=== PATIENT | male | born 1990 | race African-American/Black ===

== ENCOUNTER 2018-12-20 10:43 | Day surgery (SDC) | payer OTHER ==
[~2018-12-20] VITALS: Ht 188 cm; Wt 102.1 kg
[2018-12-20] MEDS ORDERED: CEFAZOLIN SODIUM 1 GM/D5W PM 50 ML IV SCH (10:55)
[2018-12-20] MEDS ORDERED: BUPIVACAINE-MPF 0.25% 30 ML VIAL INJ ONE (12:02)
[2018-12-20] MEDS ORDERED: KETOROLAC 30 MG/ML VIAL ONE (12:06)
[2018-12-20] MEDS ORDERED: SEVOFLURANE 250 ML BTL INH ONE (12:06)
[2018-12-20] MEDS ORDERED: ONDANSETRON 4 MG/2 ML VIAL ONE (12:06)
[2018-12-20] MEDS ORDERED: SUCCINYLCHOLINE CHLORIDE 200 MG/10 ML VIAL IVP ONE (12:06)
[2018-12-20] MEDS ORDERED: ROCURONIUM 50 MG/5 ML VIAL IV ONE (12:06)
[2018-12-20] MEDS ORDERED: DEXAMETHASONE 4 MG/ML VIAL ONE (12:06)
[2018-12-20] MEDS ORDERED: MIDAZOLAM 2 MG/2 ML VIAL ONE (12:13)
[2018-12-20] MEDS ORDERED: MEPERIDINE 50 MG/ML SYR ONE (12:14)
[2018-12-20] MEDS ORDERED: fentaNYL 0.05 MG/ML VIAL ONE (12:14)
[2018-12-20] MEDS ORDERED: ONDANSETRON 4 MG/2 ML VIAL IVP PRN (12:35)
[2018-12-20] MEDS ORDERED: MEPERIDINE 25 MG/ML SYR IVP PRN (12:35)
[2018-12-20] MEDS ORDERED: diphenhydrAMINE 50 MG/ML VIAL IVP PRN (12:35)
[2018-12-20] MEDS ORDERED: ONDANSETRON 4 MG/2 ML VIAL IV PRN (17:10)
[2018-12-20] MEDS ORDERED: MORPHINE SULFATE 2 MG/ML SYR IVP PRN (17:10)
[2018-12-20] MEDS ORDERED: MORPHINE SULFATE 4 MG/ML SYR IV PRN (17:10)
[2018-12-20] MEDS ORDERED: ACETAMINOPHEN 325 MG TAB PO PRN (17:10)
[2018-12-20] MEDS: HYDROmorphone 1 MG/ML AMP IVP PRN ×4 (17:15→19:44)
[2018-12-20] MEDS ORDERED: HYDROmorphone PFS 2 MG/ML SYR ONE (17:20)
[2018-12-20 18:30] VITALS: BP 132/84
--- NOTE | 2018-12-20 18:30 | NUR ---
RECEIVED PT FROM OR NURSE, EMILY [facility]IA [employer], PT IS AWAKE AND IS ON THE BEDSIDE, PT HAS AN IV LINE ON THE RT HAND G.20 WITH IVF OF LACTATED RINGER INFUSING. PT HAS 4 SURGICAL INCISIONS ON THE ABDOMINAL AREA, ELDA INTACT WITH BANDAGES IN PLACE, NO DRAINAGE NOTED. PT V/S WAS TAKEN AND RESULT ARE TEMP IS 97.4, BP IS 132.84, PULSE IS 84, RESPIRATION IS 18 AND O2 SATURATION IS 96%. NO SOB NOTED AND PT VERBALIZED A TOLERABLE PAIN AT THIS TIME. NO SIGN OF DISTRESS NOTED AND WILL MONITOR PT.
--- NOTE | 2018-12-20 19:15 | NUR ---
ENDORSED PT TO MATERIAL MOVERS NURSEBETINA FOR CONTINUITY OF CARE, PT IS STABLE AT THIS TIME.
--- NOTE | 2018-12-20 19:16 | NUR ---
RECEIVED REPORT FROM DAY SHIFT RN BELLE. PT IS A&OX4. HAS IV ON R HAND 20G LR INFUSING. PT IS S/P R INGUINAL HERNIA REPAIR 12/20/18 WITH . PT WITH 4 SURGICAL INCISIONS WITH ELDA PER NURSE. DRESSINGS ARE CLEAN DRY AND INTACT. PT IS OBSERVATION. IS AT BEDSIDE. PLAN OF CARE WAS DISCUSSED WITH PATIENT. ALL NEEDS MET AT THIS TIME. CALL LIGHT WITHIN REACH. WILL CONTINUE TO MONITOR.
[2018-12-20] MEDS: NACL 0.9% 1,000 ML IV SCH (19:30)
[2018-12-20] MEDS: LACTATED RINGERS 1,000 ML IV SCH ×2 (19:30→19:48)
--- NOTE | 2018-12-20 20:56 | NUR ---
19:48 NEW BAG OF IVF STARTED INFUSING. AT BEDSIDE. ADMISSION QUESTIONS ASKED. ANSWERED PTS QUESTIONS AND CONCERNS. CALL LIGHT WITHIN REACH.
--- NOTE | 2018-12-20 22:00 | NUR ---
PT RESTING COMFORTABLY IN BED SPEAKING ON THE PHONE.CALL LIGHT WITHIN REACH.
--- NOTE | 2018-12-21 | NUR ---
VITAL SIGNS ARE WITHIN NORMAL LIMITS. ALL NEEDS MET AT THIS TIME.CALL LIGHT WITHIN REACH.
[2018-12-21 00:04] VITALS: BP 127/67
[2018-12-21] MEDS: HYDROmorphone 1 MG/ML AMP IVP PRN (01:01)
--- NOTE | 2018-12-21 02:30 | NUR ---
PT SLEEPING COMFORTABLY IN BED. CALL LIGHT WITHIN REACH.
[2018-12-21] MEDS: NACL 0.9% 1,000 ML IV SCH (03:07)
--- NOTE | 2018-12-21 04:00 | NUR ---
PT SLEEPING COMFORTABLY IN BED. CALL LIGHT WITHIN REACH.
[2018-12-21] MEDS: LACTATED RINGERS 1,000 ML IV SCH (05:15)
--- NOTE | 2018-12-21 06:34 | NUR ---
PAGED DR JEFF. REGARDING PT WANT TO SPEAK WITH BEFORE DISCHARGE.
[2018-12-21] MEDS: HYDROcodone/APAP 5/325 MG 1 TAB TAB PO PRN ×2 (06:40→10:50)
--- NOTE | 2018-12-21 07:15 | NUR ---
RECEIVED PT REPORT FROM [employer]EN GRAD[employer] NURSE. PT IS AWAKE AND ALERT, TALKING ON THE PHONE WITH RELATIVE. NO S/S OF ACUTE DISTRESS, NO SOB. 4 BANDAGES NOTED ON THE ABDOMEN FROM LAP INGUINAL HERNIA REPAIR, OTHERWISE SKIN IS INTACT. PT ON ROOM AIR. IV SITE NOTED ON THE R WRIST, INFUSING LR 120 ML/HR. CALL LIGHT WITHIN REACH. WILL CONTINUE TO MONITOR.
--- NOTE | 2018-12-21 07:20 | NUR ---
ENDORSED PT TO DAY SHIFT RN. PT IS IN STABLE CONDITION. RN AWARE DR JEFF WAS PAGED. PT WISHES TO SPEAK WITH HIM BEFORE DISCHARGE.
[2018-12-21 08:00] VITALS: BP 128/76
--- NOTE | 2018-12-21 11:05 | NUR ---
PT HAS DC'D. DC INSTRUCTIONS AND RX GIVEN. PT AND VERBALIZE UNDERSTANDING OF DC INSTRUCTIONS. SIGNATURES OBTAINED. IV SITE AND WRIST BAND REMOVED. PT REFUSED FLU VACCINE. PT LEFT WITH ALL HIS BELONGINGS IN STABLE CONDITION WITH .
== END 2018-12-21 11:00 | disposition home or self-care (01) ==
LOC: MMU 10:43 → MDS 10:43 → MTU 20:58 → MDS 12-21 11:00
PROVIDERS: ATTEND Surgery
DX: K40.90 Unilateral inguinal hernia, without obstruction or gangrene, not specified as recurrent (principal); Z98.890 Other specified postprocedural states; Z79.899 Other long term (current) drug therapy
CPT/HCPCS: 49650; 71045; 87081; C1781; J0330; J0690; J1100; J1170; J1885; J2175; J2250; J2405; J3010; J3490; J7120